=== PATIENT | female | born 1975 | race Caucasian/White ===

== ENCOUNTER 2021-12-16 15:17 | Outpatient (CLI) | payer BC, SELFPAY ==
[2021-12-16 14:32] LABS: Chloride* 104 mmol/L (96-114); Sodium* 139 mmol/L (135-149)
[2021-12-16 14:35] LABS: Carbon Dioxide* 26 mmol/L (20-32); Cholesterol* 205 mg/dL (90-199); Creatinine* 0.7 mg/dL (0.5-1.5); Estimated Glomerular Filt Rate 109 ml/min
[2021-12-16 14:36] LABS: Blood Urea Nitrogen* 13 mg/dL (5-24); Glucose* 95 mg/dL (60-115); HDL Cholesterol* 33 mg/dL (>=50); LDL Cholesterol Calculated 126 mg/dL (<100); Triglycerides* 232 mg/dL (40-149)
== END 2021-12-16 15:18 | disposition home or self-care (01) ==
PROVIDERS: PCP Family Medicine; Visit Provider Family Medicine
DX: Z00.00 Encounter for general adult medical examination without abnormal findings (principal); Z13.6 Encounter for screening for cardiovascular disorders
CPT/HCPCS: 80048; 80061

== ENCOUNTER 2022-02-09 15:30 | Outpatient (RCR) | payer BC, SELFPAY | END 2022-04-27 15:55 | disposition home or self-care (01) | PROVIDERS: PCP Family Medicine; Visit Provider Orthopaedic Surgery Sports Medicine | DX: M70.61 Trochanteric bursitis, right hip (principal); Z51.89 Encounter for other specified aftercare | CPT/HCPCS: 97110; 97140; 97162 ==

== ENCOUNTER 2023-02-17 09:38 | Outpatient (CLI) | payer BC, SELFPAY | END 2023-02-17 09:39 | disposition home or self-care (01) | LOC: NFLDREF 02-24 10:21 | PROVIDERS: PCP Family Medicine; Referring Provider Family Medicine; Visit Provider Family Medicine | DX: E55.9 Vitamin D deficiency, unspecified (principal); R73.03 Prediabetes; Z13.6 Encounter for screening for cardiovascular disorders | CPT/HCPCS: 80048; 80061; 82306 ==

== ENCOUNTER 2023-02-27 08:45 | Day surgery (SDC) | payer BC, SELFPAY ==
[2023-02-24] MEDS: LACTATED RINGERS 1000 ML 1,000 ML 100 ML IV (11:55)
[2023-02-27 08:57] VITALS: BMI 32.1
[2023-02-27 09:15] LABS: Ur HCG Qualitative* Negative (Negative)
[2023-02-27 09:20] VITALS: BP 122/84; PULSE 72; RESP 18; TEMP 36.8; O2SAT 96
[2023-02-27] MEDS: SODIUM CHLORIDE 0.9 % (FLUSH) 10 ML SYRINGE IVF (09:23)
--- NOTE | 2023-02-27 09:42 | W.PM.H&PU ---
History & Physical Update History & Physical Update H&P Reviewed and patient assessed: No changes noted
--- NOTE | 2023-02-27 09:44 | P.GSOP_ITS ---
Operative Note Pre-op diagnosis: 1. Symptomatic right mid back mass. Post-op diagnosis: Same Type of Procedure: 1. Excision of right mid back mass. Indications: 47-year-old female was seen in clinic for evaluation of right mid back mass that was noticed several months ago. Patient denied previous infections. Patient's family member is a nurse practitioner and recommended to have this checked out. Patient does have discomfort in the mass when she is stretching her arms and shoulder blades. On clinical exam in the right mid back just lateral to the spine slightly superior to the bra strap there was a quarter- sized soft tissue mass palpated in subcutaneous tissues. This seemed to be deep to palpation and is attached to the muscle fascia. This was suspicious for lipoma. Given patient's clinical symptoms and physical exam, excision of this mass in the operating room was recommended. The procedure was discussed in detail. The risks associated procedure including infection, bleeding, and the need for additional procedures were all discussed with the patient, and she agreed to proceed. Procedure Description: After discussing the risks and benefits of the procedure, the patient signed informed consent.? The operative site was marked and the patient was brought to the operating room and placed in the lateral decubitus position.? Care was taken to pad the patient's pressure points.?? The patient was then Sedated by anesthesia.?? The operative site was then prepped and draped in the usual sterile fashion.? A time-out was then performed. Local anesthetic was injected at the surgical site. A vertical skin incision was made with a scalpel. Subcutaneous tissue was divided with cautery until a well-circumscribed fatty appearing mass was identified. This was dissected from underlying tissues with cautery and bluntly. This came out in 3 different pieces. This had an appearance of lipoma. The specimen was sent to pathology. Hemostasis was achieved with cautery. Additional local anesthetic was injected at the surgical site. Subcutaneous fat was then reapproximated with interrupted 2-0 Vicryl sutures. The dermis was reapproximated with interrupted 3-0 Vicryl sutures. The skin was closed with a running 4-0 Monocryl stitch. Steri-Strips and sterile pressure dressing were placed over the incision. The patient was then woken and transported to the recovery area in stable condition. ? The patient tolerated the procedure well. Findings: Lipoma appearing mass. Anesthesia: MAC and local Surgeon: Juan José Villanueva MD Estimated blood loss (mL): 2 Additional Specimen Information: 1. Mid back mass. Condition: stable Disposition: same day Date of procedure: 02/27/23
[2023-02-27] MEDS: CEFAZOLIN 2 GM INJ IVP (10:10)
[2023-02-27] MEDS: BUPIVACAINE 0.25% 30 ML 10 ML INJECTION (10:17)
[2023-02-27 10:45] VITALS: BP 105/76; PULSE 68; RESP 16; TEMP 36.8; O2SAT 94
--- NOTE | 2023-02-27 10:47 | W.ANESCHARGE ---
Anesthesia Charges Start Date/Time Anesthesia Start Date: 02/27/23 Anesthesia Start Time: 09:58 Stop Date/Time Anesthesia Stop Date: 02/27/23 Anesthesia Stop Time: 10:43
--- NOTE | 2023-02-27 10:49 | W.ANESCHARGE ---
Anesthesia Charges Start Date/Time Anesthesia Start Date: 02/27/23 Anesthesia Start Time: 09:58 Stop Date/Time Anesthesia Stop Date: 02/27/23 Anesthesia Stop Time: 10:43
[2023-02-27 11:00] VITALS: BP 107/68; PULSE 56; RESP 16; O2SAT 94
[2023-02-27 11:15] VITALS: BP 100/65; PULSE 54; RESP 16; O2SAT 95
[2023-02-27 11:30] VITALS: BP 111/76; PULSE 69; RESP 16; O2SAT 96
[2023-02-27 11:45] VITALS: BP 114/70; PULSE 69; RESP 16; O2SAT 96
== END 2023-02-27 12:09 | disposition home or self-care (01) ==
LOC: OR 08:46
PROVIDERS: PCP Family Medicine; Visit Provider Surgery
PROC: (CPT 21931; principal; 2023-02-27 10:00)
DX: R22.2 Localized swelling, mass and lump, trunk (principal); D17.1 Benign lipomatous neoplasm of skin and subcutaneous tissue of trunk
CPT/HCPCS: 21931; 300; 81025; 88305; J0665; J0690; J1100; J1885; J2250; J2405; J2704; J3010; J7120

== ENCOUNTER 2023-04-06 09:40 | Outpatient (CLI) | payer BC, SELFPAY ==
[2023-04-06 10:35] VITALS: BP 127/84; PULSE 92
--- NOTE | 2023-04-06 10:46 | W.PM.STED ---
Stress Test Note Date Date of test: 04/06/23 Providers Primary care provider: Matthew Stallings Stress test physician: Barber Farrell Stress Test Note Stress test ordered: Exercise Stress Test Indication for test: shortness of breath Stress test medicine: None Results discussion: Patient presents for the above test after discussion the risks benefits side effects she would like to proceed cardiac stress test medical history form is reviewed. Pretest EKG shows normal sinus rhythm with a ventricular rate of 76 and a blood pressure 113 at 78, standard Aki protocol is used over a time period of 9 minutes, achieved a metabolic equivalent of 10.3 Mets maximum was 171 which is 115% of the target, test is terminated because of fulfillment of protocol, she had no chest pain no shortness of breath, or any other anginal equivalents, review of the tracing shows some mild ST wave changes of depression and 2 3 and AVF of 1 mm, there were no reciprocal changes, there were no dysrhythmias. Impression: Negative electrographic tracing, with mild ST wave changes described above. Condition was felt to be good. Follow up suggested: Patient left this testing facility in good condition. If further testing needs to be done the sensitivity of this test is approximately 70%. Would suggest as addition of echo,
== END 2023-04-06 09:41 | disposition home or self-care (01) ==
LOC: STRESS 09:42
PROVIDERS: PCP Family Medicine; Visit Provider Family Medicine
DX: R06.02 Shortness of breath (principal); R07.9 Chest pain, unspecified
CPT/HCPCS: 93016; 93017

== ENCOUNTER 2023-04-07 10:46 | Outpatient (CLI) | payer BC, SELFPAY ==
--- NOTE | 2023-04-07 11:00 | CRLHL7_ITS ---
For Patients: As a result of the Century Cures Act, medical imaging exams and procedure reports are released immediately into your electronic medical record. You may view this report before your referring provider. If you have questions, please contact your health care provider. Indication: Dorsalgia Technique: Multiplanar, multisequence, MRI of the lumbar spine, obtained without contrast. Comparison: MRI lumbar spine 02/13/2019 Findings: Preserved lumbar lordosis. No significant spondylolisthesis. Vertebral body heights are maintained. Incidental vertebral hemangioma at L2. No acute osseus abnormality. Unremarkable bone marrow signal. Conus medullaris terminates at L1-2. No suspicious findings identified in the paraspinal soft tissues. Included SI joints are unremarkable. T12-L1, L1-L2: No significant neural foraminal or spinal canal stenosis. L2-L3, L3-L4: Mild diffuse disc bulge, mild facet arthropathy. No significant neural foraminal or spinal canal stenosis. L4-L5: Mild diffuse disc bulge. Moderately advanced right asymmetric facet arthropathy with small right facet joint effusion. No right, mild left neural foraminal narrowing. No spinal canal stenosis. L5-S1: Mild diffuse disc bulge, mild facet arthropathy. No right, mild left neural foraminal narrowing. No spinal canal stenosis. Impression: 1. Normal spinal alignment. No acute osseous abnormality. 2. Moderately advanced right L4-5 facet arthropathy with small joint effusion. 3. Mild left neural foraminal narrowing at L4-5 and L5-S1. 4. No significant spinal canal stenosis. Dictated by Lisa Sutherland MD @ 04/07/2023 12:43:48 PM (Electronically Signed)
== END 2023-04-07 10:47 | disposition home or self-care (01) ==
LOC: MRI 10:46
PROVIDERS: PCP Family Medicine; Visit Provider Family Medicine
DX: M54.9 Dorsalgia, unspecified (principal); M51.26 Other intervertebral disc displacement, lumbar region; M25.48 Effusion, other site
CPT/HCPCS: 72148

== ENCOUNTER 2023-04-11 10:05 | Outpatient (CLI) | payer BC, SELFPAY ==
--- OUTSIDE RECORDS SUMMARY | 2023-04-11 10:12 | XMS_ITS | Encounter Summary ---
Author Name Unknown Organization [facility] Address [address] [place] [address] Care Team Providers Care Jockey Agent Name Role Phone Augustina Cameron MD Primary Care Provider [phone] [facility] Primary Care Provider + Angel Hightower MD Primary Care Provider + [phone] Sharmin Veliz PA-C Primary Care Provi alicia Lluvia Barriga MD Primary Care Provider [phone] Matthew Stallings MD Primary Care Provider [phone] Encounter Details Date Type Department Care Team (Late st Contact Info) Description 10/14/2010 MyC Medical Advice Initial Department [facility] Social History Tobacco Use Types Packs/Day Years Used Date Smoking Tobacco: Never Alcohol Use Standard Drinks/Week Comments Yes 0 (1 standard drink = 0.6 oz pur e alcohol) 4 drinks per month Sex and Gender Information Value Date Recorded Sex Assigned at Not on file Gender Identity Not on file Sexual Orientation Not on file documented as of this encounter Plan of Treatment Not on file documented as of this encounter Visit Diagnoses Not on filedocumented in this encounter Care Teams Jockey Agent Relationship Specialty Start Date End Date Augustina Cameron MD PCP - General 04/07/09 04/18/11 [facility] PCP - General 04/19/11 08/09/11 Angel Hightower MD [facility] [address] [place] [phone] PCP - General Family Practice 08/10/11 09/08/12 Sharmin Veliz PA-C [facility] [address] [place] [address] PCP - General 09/09/12 08/04/15 [place] [address] [place] [address] PCP - General Family Practice 08/05/15 09/17/17 [place] [address] [place] [address] PCP - General Family Practice 09/18/17 documented as of this encounter
--- OUTSIDE RECORDS SUMMARY | 2023-04-11 10:12 | XMS_ITS | Referral Summary ---
Author Name Unknown Organization [facility] Address [address] [place] [address] Care Team Providers Care Package Sealer Name Role Phone Matthew Stallings MD Primary Care Provider [phone] Allergies Active Allergy Reactions Criticality Noted Date Comments No Known Drug Allergy 12/11/2003 Medications Medication Sig Dispensed Refills Start Date End Date Status VITAMIN D, CHOLECALCIFEROL, PO Take 2,000 Units by mouth daily 0 Active methocarbamol (ROBAXIN) 500 MG tablet Take 2 tablets (1,000 mg) by mouth 3 times daily as needed 30 tablet 0 09/19/2017 Active Active Problems Problem Noted Date Diagnosed Date (normal spontaneous vaginal delivery) 05/04 Indication for care in labor or delivery 015 Right sided abdominal pain 02/17/2014 Near syncope 09/09/2012 Alopecia, 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 Provider to review Encounter for other general counseling or advice on contraception 05/22/2008 Overview: Diagnosis updated by automated process. Provider to review and confirm. Other psoriasis 09/27/2004 Polycystic ovaries 12/11/2003 Esophageal reflux 12/11/2003 Resolved Problems Problem Noted Date Diagnosed Date Resolved Date Encounter for other general counseling or advice on contraception 05/18/2007 05/22/2008 Overview: Diagnosis updated by automated process. Provider to review and confirm. Immunizations Name Administration Dates Next Due TD,PF 7+ (Tenivac) 09/23/2002 Social History Tobacco Use Types Packs/Day Years Used Date Smoking Tobacco: Never Smokeless Tobacco: Never Tobacco Cessation:Counseling Given: Yes Alcohol Use Standard Drinks/Week Comments No 0 (1 standard drink = 0.6 oz pur e alcohol) Not during Adolescent Education Answer Date Record ed Getting School Help Needed Not on file 01/01 Sex and Gender Information Value Date Recorded Sex Assigned at Not on file Gender Identity Not on file Sexual Orientation Not on file Last Filed Vital Signs Vital Sign Reading Time Taken Comments Blood Pressure 126/97 09/19/2017 12:57 AM CDT Pulse 64 09/19/2017 12:57 AM CDT Temperature 36.8 ??C (98.2 ??F) 09/18/2017 10:07 PM C DT Respiratory Rate 18 09/19/2017 12:57 AM CDT Oxygen Saturation 96% 09/19/2017 1:12 AM CDT Inhaled Oxygen Concentration - - Weight 72.6 kg (160 lb) 09/19/2016 1:26 PM CDT p t reported Height 162.6 cm (5' 4) 09/19/2016 1:26 PM CDT p t reported Body Mass Index 27.46 09/19/2016 1:26 PM CDT Plan of Treatment Not on file Advance Directives For more information, please contact: [phone] Latest Code Status on File Code Status Date Activated Date Inactivated Comments Full Code 09/10/2012 2:37 PM Code Status History Code Status Date Activated Date Inactivated Comments Full Code 09/09/2012 9:51 PM 09/10/2012 2:37 PM None 06/24/2003 1:09 PM 06/24/2003 2:09 PM Care Teams Package Sealer Relationship Specialty Start Date End Date Matthew Stallings MD PCP - General Family Practice 09/18/17
--- OUTSIDE RECORDS SUMMARY | 2023-04-11 10:12 | XMS_ITS | Encounter Summary ---
Author Name Unknown Organization [facility] Address [address] [place] [address]. [place] [address] Care Team Providers Care Finger Buff Sewer Name Role Phone [facility] Primary Care Provider + Angel Hightower MD Primary Care Provider [phone] Sharmin Veliz PA-C Primary Care Provi alicia Lluvia Barriga MD Primary Care Provider [phone] Matthew Stallings MD Primary Care Provider [phone] Encounter Details Date Type Department Care Team (Late st Contact Info) Description 04/19/2011 [facility] [address] [address] [facility] Social History Tobacco Use Types Packs/Day Years [...] on filedocumented in this encounter Care Teams Finger Buff Sewer Relationship Specialty Start Date End Date [facility] PCP - General 04/19/11 08/09/11 Angel Hightower MD [facility] [address] [place] [address] PCP - General Family Practice 08/10/11 09/08/12 Sharmin Veliz PA-C [facility] [address] [place] [address] PCP - General 09/09/12 08/04/15 [place] [address] [place] [address] PCP - General Family Practice 08/05/15 09/17/17 [place] [address] [place] [address] PCP - General Family Practice 09/18/17 documented as of this encounter
--- OUTSIDE RECORDS SUMMARY | 2023-04-11 10:12 | XMS_ITS | Data Portability ---
Author Name Unknown Address [address] [place] [address] Phone [phone] Organization [place] - [facility] [place] Address [address] [address] Assessment No assessment recorded. Plan of Treatment Reminders Order Date Submit Date Provider Last Modified By Organization Details Last Modified Time Details Appointments None record ed. Lab None record ed. Referral None record ed. Procedures None record ed. Surgeries None record ed. Imaging None record ed. Medication Orders None record ed. Patient TargetsNo targets recorded. Patient InstructionsNo instructions recorded. Reason for Referral None Reported. Results Created Date Observation Date Name Description Value Unit Range Abnormal Flag LastModifiedBy Organization Detail LastModifiedTime 01/25/20 22 07/24/2019 MR, arthr ogram , hip No observ ation record ed. Not Available 2 16:36:19 01/25/20 22 02/13/2019 MRI, lumba r spine , w/o contr ast No observ ation record ed. [email or web address] Not Available 2 16:35:57 Result Notes None recorded. Problems Name Status Onset Date Resolution Date Notes Provider Name and Address Organization Details Recorded Time Chronic back pain Active 01/11/20 22 Stephanie fernandes [place] - [facility] 01/10/2022 11:32:17 Tendinitis Active 01/11/20 r ankle Stephanie fernandes [place] - [facility] 01/10/2022 11:32:47 Trochanteric bursitis of right hip Active 01/11/20 22 Stephanie fernandes [place] - [facility] 01/10/2022 11:32:59 Acetabular labrum detachment Active 01/11/20 Stephanie fernandes, [place] - [facility] 01/10/2022 11:33:22 Sacroiliac joint pain Active 01/11/20 22 Stephanie Kumar null, [place] - [facility] 01/10/2022 11:33:37 Prediabetes Active 01/11/20 Stephanie Heath null, [place] - [facility] 01/10/2022 11:33:48 Polycystic ovary syndrome Active 01/11/20 Stephaniekarishma Heath null, [place] - [facility] 01/10/2022 11:33:56 Pain in left foot Active 01/11/20 22 Stephaniedeborah Heath null, [place] - [facility] 01/10/2022 11:34:28 Neno thyroiditis Active 01/11/20 Stephanie Kumar null, [place] - [facility] 01/10/2022 11:34:37 Depressive disorder Active 01/11/20 Stephaniedeborah fernandes, [place] - [facility] 01/10/2022 11:34:54 Carpal tunnel syndrome Active 01/11/20 Stephaniekarishma fernandes, [place] - [facility] 01/10/2022 11:35:06 Problem Notes None recorded. Procedures Surgical History Date Name Laterality Status Provider Name and Address Organization Details Recorded Time 01/25/20 Greater Trochanteric Bursa Steroid Injection completed Charlie Tompkins MD [address] [place], [address], [place] - [facility] 01/25/2022 18:13:45 General Surgery completed Stephanie Kumar fern[place]es, [place] - [facility] 01/24/2022 16:38:25 Imaging Results Imaging Date Name Status LastModified by Organiz ation Details LastModified Time 07/24/2019 MR, arthrogram, hip active [email or web address] Information not available 01/24/2022 16:36:19 02/13/2019 MRI, lumbar spine, w/o contrast active [email or web address] Information not available 01/24/2022 16:35:57 Procedure Notes None recorded. Medical Equipment None Reported. Allergies Allergen ID Allergen Name Allergen Category Reaction Reaction Severity Criticality Documentation Date Start Date Code Code System Note Provider Name and Address Organization Details Recorded Time 9989 adhesive environme nt,medica tion Not available Not available Not available 01/24/2022 Stephanie fernandes, [place] - [facility] 16:39:27 Medications Name Sig Start Date Stop Date Status Note LastModified by Organization Details LastModified Time antacid/dip hen/lido 111 mouthwas SWISH AND SPIT 5 ML BY MOUTH FOUR TIMES DAILY NEEDED. active Not Available Not Available No t Available cyclobenzap rine 10 mg tablet TAKE 1 TABLET BY MOUTH THREE TIMES DAILY NEEDED FOR MUSCLE SPASM active Not Available Not Available No t Available Lidocaine Viscous 2 % mucosal solution SWISH AND SPIT 15 ML BY MOUTH EVERY 4 HOURS NEEDED 01/23 completed Not Available Not Available Not Available ofloxacin 0.3 % eye drops active Not Available Not Available Not Available prednisone 20 mg tablet TAKE 1 TABLET BY MOUTH TWICE DAILY 01/23 completed Not Available Not Available Not Available Advair Diskus 100 mcg-50 mcg/dose powder for inhalation INHALE 1 PUFF BY MOUTH TWICE DAILY 01/23 completed Not Available Not Available Not Available topiramate 25 mg tablet TAKE 1 TABLET BY MOUTH TWICE DAILY 01/23 completed Not Available Not Available Not Available acetaminoph en 300 mg-codeine 30 mg tablet TAKE 1 TO 2 TABLETS BY MOUTH EVERY 4 HOURS NEEDED 01/23 completed Not Available Not Available Not Available minoxidil 2.5 mg tablet TAKE 1 TABLET BY MOUTH EVERY DAY active Not Available Not Available No t Available triamcinolo ne acetonide 0.1 % topical cream APPLY TOPICALLY TO THE AFFECTED AREA TWICE DAILY NEEDED FOR RASH active Not Available Not Available No t Available amoxicillin 500 mg tablet TAKE 1 TABLET BY MOUTH TWICE DAILY FOR 10 DAYS active Not Available Not Available No t Available amoxicillin 875 mg tablet TAKE 1 TABLET BY MOUTH TWICE DAILY FOR 10 DAYS 01/23 completed Not Available Not Available Not Available lorazepam 0.5 mg tablet TAKE 1 TO 2 TABLETS BY MOUTH THREE TIMES DAILY NEEDED FOR NAUSEA OR VOMITING 01/23 completed Not Available Not Available Not Available diclofenac potassium 50 mg tablet TAKE 1 TABLET BY MOUTH TWICE DAILY 01/23 completed Not Available Not Available Not Available clindamycin 2 % vaginal cream APPLY PER VAGINA AT BEDTIME FOR 7 DAYS. 01/23 completed Not Available Not Available Not Available mupirocin 2 % topical ointment APPLY TOPICALLY TO THE AFFECTED AREA THREE TIMES DAILY 01/23 completed Not Available Not Available Not Available cefuroxime axetil 500 mg tablet TAKE 1 TABLET BY MOUTH TWICE DAILY 01/23 completed Not Available Not Available Not Available albuterol sulfate HFA 90 mcg/actuati on aerosol inhaler INHALE 2 PUFFS BY MOUTH EVERY 4 HOURS NEEDED active Not Available Not Available No t Available celecoxib 100 mg capsule TAKE 2 CAPSULES BY MOUTH TWICE DAILY active Not Available Not Available No t Available finasteride 5 mg tablet TAKE 1/2 TABLET BY MOUTH EVERY DAY active Not Available Not Available No t Available ciprofloxac in 0.3 %-dexametha sone 0.1 % ear drops,suspe nsion 01/23 completed Not Available Not Available Not Available Antacid Regular Strength 200 mg-200 mg-20 mg/5 mL oral suspension 01/23 completed Not Available Not Available Not Available Vitals Date Recorded Oxygen saturation Oxygen saturation in Arterial blood by Pulse oximetry Heart rate Systolic blood pressure Diastolic blood pressure Provider Name and Address Organization Details Last Updated DateTime 2 97 % 97 % 67 /min 134 mm[Hg] 87 mm[Hg] Stephanie Heath [place], [place] - [facility] 2 16:38:33 Social History Question Answer Notes LastModified by Organization D etails LastModified Time What Is Your Level Of Alcohol Consumption? None [email or web address] Information not available 01/24/2022 What Is Your Level Of Caffeine Consumption? Heavy [email or web address] Information not available 01/24/2022 How Much Tobacco Do You Chew? None [email or web address] Information not available 01/24/2022 Are You Currently Employed? Yes [email or web address] Information not available 01/24/2022 Sex: Female Functional Status None recorded. Mental Status None recorded. Family History Relationship Description Onset Age of this Age Resolved Age Notes Maternal Grandmother Arthritis Maternal Grandmother Asthma Mother Arthritis Mother Back problem Medical History No medical history recorded. Gynecological HistoryNo gynecological history recorded. Obstetrics History GPAL:G 0 P 0 0 0 0 Past Encounters Encounter ID Performer Location Encounter Start Date Encounter Closed Date Diagnosis/Indication [id number] Charlie Tompkins MD [facility] [address] [place] [address] 01/24/2022 16:21:20 01/26/2022 17:46:42 Greater trochanteric pain syndrome Lumbar spondylosis Health Concerns Section Related Observation LastModified by Organization Detai ls LastModified Time None Recorded Concern Status LastModified by Organization Details LastModified Time None Recorded Advance Directives Directive None Recorded Payers Encounter Date Sequence Insurance Name Policy Number Policy Barrientos Covered Member ID Barrientos Member ID Guarantor Name 01/24/2022 1 [facility] [id number] Shaista Daniels [id number] Shaista Daniels Notes Date Note Type Note Provider Name and Address Organization Details Recorded Time 01/24/2022 text/html HPI Notes: The patient is here to establish care. The patient was referred by Dr. No at [facility] History of pain: -right side low back and right hip pain -diagnosed with arthritis at L4-5, has done steroid injection which she got relief for a few hours, patient also had workup for RFA but failed the first block with [facility] -had rt hip labral tear, this was repaired at [facility] but patient is still having right hip problems -patient does not want to go back to [facility] -currently doing PT for right hip bursitis and heel pain Characteristics of pain: -constant dull low back pain, occasionally causes sharp shooting -back pain causes pain radiating down right leg - described as burning shooting pain -identified urinary loss of control at times Pain score today: 4/10. Imaging findings: -lumbar MRI from 2019 and h ip MRI from 2019 uploaded to chart Current pain medications: -flexeril Does the patient experience any problems with sedation or constipation with current medications? 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 which increases pain Smoking status Never smoker Work status: Works multimedia developer Pain Chief Complaint Back / Spine Pain Locations Back Right Foot Right Hip Symptom Description Aching Hot/Burning [place] Sharp Shooting Pain Onset Suddenly Pain Scale - Today 7 Pain Scale Least 3 Pain Scale Worst 10 Associated Symptoms Difficulty staying asleep Involuntary loss of bowel/bladder Non-restful sleep Restriction of activities Unable to fall asleep Symptom Frequency Constant Symptom Duration A year or more Date Symptoms Started 04/03/9998 Symptom Context Unsure Alleviating Factors Nothing Aggravating Factors Changing Positions Bending Standing Straight Up Prolonged Standing Prolonged Sitting Movement Lying flat Increased Activity Turning Side to Side Going Up/DownStairs Past Treatments Physical Therapy Steroid Imported from [facility] on 01/24/2022 Charlie Tompkins MD [address] [place], [address], [place] - [facility] 01/25/2022 18:19:45 OBGyn Episode No OBEpisode recorded.
--- OUTSIDE RECORDS SUMMARY | 2023-04-11 10:12 | XMS_ITS | Clinical Summary ---
Author Name Unknown Organization [facility] Address [address] [place] [id number] Care Team Providers Care Clinical Psychologist Licensed Name Role Phone Matthew Stallings MD Primary Care Provider [phone] Allergies Active Allergy Reactions Criticality Noted Date [...] Dates Next Due TD,PF 7+ (Tenivac) 09/23/2002 Family History Medical History Relation Comments Cerebrovascular Disease Maternal Aunt Other Cancer Maternal Grandfather Prostate Cancer Maternal Grandfather C.A.D. Maternal Grandmother Diabetes Maternal Grandmother Hypertension Maternal Grandmother Hyperlipidemia Mother Breast Cancer No family hx of Cancer - colorectal No family hx of Relation Status Comments Brother Alive Father Alive Maternal Aunt Maternal Grandfather Alive Maternal Grandmother Alive Mother Alive Paternal Grandfather Paternal Grandmother Sister 1 Alive Sister 2 Alive Social History Tobacco Use Types Packs/Day Years [...] 09/19/2016 1:26 PM CDT Plan of Treatment Health Maintenance Due Date Last Done Comments ADVANCE CARE PLANNING 1976 ANNUAL REVIEW OF HM ORDERS 1976 CT COLONOGRAPHY 1976 FIT 1976 FLEX SIG 1976 HEPATITIS B IMMUNIZATION (1 of 3 - 3-dose series) 1976 sDNA (Cologuard) 1976 COVID-19 Vaccine (#1) 1976 COLONOSCOPY 1986 COLORECTAL CANCER SCREENING 1986 HEPATITIS C SCREENING 1994 DTAP/TDAP/TD IMMUNIZATION (1 - Tdap) 09/24/2002 09/23/2002, 09/23/2002 YEARLY PREVENTIVE VISIT 05/24/2011 05/24/19 11, 05/22/2009, 05/22/2008, Additional history exists LIPID 05/18/2012 05/18/2007 MAMMO SCREENING 09/19/2017 09/19/2016 PAP 10/23/2022 10/24/2019, 10/02, 05/24/2010, Additional history exists INFLUENZA VACCINE (#1) 2022 PHQ-2 (once per calendar year) 2023 HIV SCREENING Completed 10/17/2013 HPV IMMUNIZATION Aged Out No longer e ligible based on patient's age to complete this topic IPV IMMUNIZATION Aged Out No longer e ligible based on patient's age to complete this topic MENINGITIS IMMUNIZATION Aged Out No l onger eligible based on patient's age to complete this topic Pneumococcal Vaccine: Pediatrics (0 to 5 Years) and At-Risk Patients (6 to 64 Years) Aged Out No longer eligible based on patient's age to complete this topic RSV MONOCLONAL ANTIBODY Aged Out No l onger eligible based on patient's age to complete this topic Advance Directives For more information, please contact: [phone] Latest Code Status on File Code Status Date Activated Date Inactivated Comments Full Code 09/10/2012 2:37 PM Code Status History Code Status Date Activated Date Inactivated Comments Full Code 09/09/2012 9:51 PM 09/10/2012 2:37 PM None 06/24/2003 1:09 PM 06/24/2003 2:09 PM Care Teams Clinical Psychologist Licensed Relationship Specialty Start Date End Date Matthew Stallings MD PCP - General Family Practice 09/18/17
--- NOTE | 2023-04-11 10:54 | W.ANESCHARGE ---
Anesthesia Charges Start Date/Time Anesthesia Start Date: 04/11/23 Anesthesia Start Time: 10:29 Stop Date/Time Anesthesia Stop Date: 04/11/23 Anesthesia Stop Time: 10:52
--- NOTE | 2023-04-11 11:12 | W.ANESCHARGE ---
Anesthesia Charges Start Date/Time Anesthesia Start Date: 04/11/23 Anesthesia Start Time: 10:29 Stop Date/Time Anesthesia Stop Date: 04/11/23 Anesthesia Stop Time: 10:52
== END 2023-04-11 10:06 | disposition home or self-care (01) ==
LOC: OP CLINIC 10:05
PROVIDERS: PCP Family Medicine; Visit Provider Internal Medicine
DX: Z12.11 Encounter for screening for malignant neoplasm of colon (principal); K63.5 Polyp of colon
CPT/HCPCS: 00811; 45380; 88305; J2704

== ENCOUNTER 2024-06-13 08:39 | Outpatient (CLI) | payer BC, SELFPAY | END 2024-06-13 08:40 | disposition home or self-care (01) | LOC: NFLDREF 06-16 23:58 | PROVIDERS: PCP Family Medicine; Referring Provider Family Medicine; Visit Provider Family Medicine | DX: Z13.220 Encounter for screening for lipoid disorders (principal); Z13.228 Encounter for screening for other metabolic disorders | CPT/HCPCS: 80053; 80061 ==